=== PATIENT | female | born 1970 | race Caucasian/White ===

== ENCOUNTER 2016-07-29 04:36 | Emergency (ER) | payer SELFPAY ==
--- NOTE | 2016-07-29 19:04 | ER ---
ADMIT: 07/29/2016 RM/LOC: ER [facility] MR#: [id number] [address] [id number] MAIRA CHRISTY [address] [place] [address] Emergency Room Report SEX: F AGE: 45 : 1970 DATE: 07/29/2016 The patient is a 45-year-old female, complaining of right greater than left earache since starting yesterday requiring ear plugs. The patient denies any use of Q-tips. Exam remarkable for right external otitis with cerumen impaction, right greater than left. TMs clear. The patient tolerated debridement with irrigation and sharp curette, ear wick in right ear and Ciprodex 5 drops b.i.d. x5 days, filled here; hydrocodone 5/325 mg as needed, #15 plus #6. Earmuffs, no more ear plugs, follow up with Dr. Goodwin as needed. Abraham Grant MD/ adi JOB #: [id number] CC: Abraham Grant MD, Attending Physician Jessica Goodwin MD, Family Physician Jessica Goodwin MD
== END 2016-07-29 06:08 | disposition home or self-care (01) ==
LOC: ER 04:36
PROC: 3E1B78Z Irrigation of Ear using Irrigating Substance, Via Natural or Artificial Opening (ICD-10-PCS; principal; 2016-07-29)
DX: H61.23 Impacted cerumen, bilateral (principal); H60.91 Unspecified otitis externa, right ear